=== PATIENT | female | born 1985 | race Caucasian/White ===

== ENCOUNTER 2017-07-02 18:38 | Emergency (ER) | payer OTHER ==
--- NOTE | 2017-07-02 20:41 | RAD REPORT ---
EXAM DESCRIPTION: Lumbar Spine - Single View CLINICAL HISTORY: Trauma, radiculopathy. COMPARISON: None. FINDINGS: Only a single lateral projection of the lumbar spine is submitted. Vertebral body heights appear maintained. No compression fracture noted. Disc spaces are maintained.
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
[2017-07-02 22:17] VITALS: TEMP 97.7
[2017-07-02 22:20] VITALS: BP 113/54; O2SAT 98
== END 2017-07-02 22:02 | disposition home or self-care (01) ==
LOC: ER 18:38
DX: S30.0XXA Contusion of lower back and pelvis, initial encounter (principal); V09.9XXA Pedestrian injured in unspecified transport accident, initial encounter; Y93.9 Activity, unspecified; Y92.481 Parking lot as the place of occurrence of the external cause
CPT/HCPCS: 72020; 99283